=== PATIENT | male | born 1960 | race Caucasian/White ===

== ENCOUNTER 2025-07-14 11:50 | Emergency (ER) | payer BC ==
--- OUTSIDE RECORDS SUMMARY | 2025-07-14 11:53 | XMS REPORT | Clinical Summary ---
Author Name Unknown Organization [facility] Address [address] [place] [address] Care Team Providers Care Manufacturing Tech Name Role Phone Arie Lugo MD Primary Care Provider + Madhavi Ogden [facility]-GR[facility] SET UP OPERATOR THREAD Unavailable [phone] Allergies No known active allergies Medications * This document contains information received from the source organization and may not represent a complete record from that organization. atorvastatin (LIPITOR) 10 mg tablet Take 10 mg by mouth daily. 11/27/2019 Active omeprazole (PriLOSEC) 40 MG capsule Take 40 mg by mouth daily. 05/24/2019 Active tadalafil (CIALIS) 20 mg tablet Take 20 mg by mouth daily. 10/30/2019 Active zolpidem (AMBIEN) 10 mg tablet Take 10 mg by mouth as needed. 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 Cam Wilson came to see me in my clinic accompanied by his , Mili, who worked with me at [facility]. His main complaint is something stuck in his throat and needs to constantly clear his throat; it is worse at night. He also has difficulty swallowing pills which get stuck in the throat. These problems have been going on for 10 years along with severe GERD associated with obesity; his GERD and weight issues cleared after gastric bypass surgery in April 2018 when he lost weight from 270 lbs to 188lbs. He has no heartburn or regurgitation after surgery. He has seen an ENT surgeon who evaluated his throat. He tried benjamin for allergies with no difference. He denies postnasal drip. He has several EGDs - 2004, 2012 and 2018 - which revealed esophagitis, gastritis, hiatal hernia and a small cardia ulcer (in 2004). He had a polyp removed from the colon in 2018. He reports no gi bleeding and his bowels are regular. Exam: Unremarkable. 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 I suggested that we should get speech therapy evaluation to define it further. I encouraged him to try lemonade which has helped him in the past by making his saliva thin. Since he has had many endoscopies in the past, we will wait until the evaluation by speech therapy. He has a followup in 3 months. Surgical History Surgery Date Site/Laterality Comments COLONOSCOPY UPPER GASTROINTESTINAL ENDOSCOPY Medical History Medical History Date Comments Hyperlipidemia Swallowing problem Pneumonia 2017 Gastric reflux 2010 Gastric ulcer 2010 Benign prostatic hyperplasia 2010 Gastric cancer 04/2018 stroma Family History Medical History Relation Name Comments Prostate cancer Brother Chidi post taking hormones Cervical cancer Maternal Aunt Sylwia Plunkettarjun Relation Name Status Comments Brother Chidi Maternal Aunt Sylwia Plunkettarjun Social History Tobacco Use Types Packs/Day Years Used Date Smoking Tobacco: Former Cigarettes 2 10 Smokeless Tobacco: Former Quit: 09/17/1984 Alcohol Use Standard Drinks/Week Comments Yes 4 (1 standard drink = 0.6 oz pur e alcohol) per mos Sex and Gender Information Value Date Recorded Sex Assigned at Not on file 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 Gender Identity Not on file Sexual Orientation Not on file Obstetrics History Plan of Treatment Health Maintenance Due Date Last Done Comments Pneumococcal Vaccine: 50+ Years (1 of 1 - PCV) 010 COVID-19 Vaccine ( - 2023- season) 2025 Influenza Vaccine (#1) 2025 Insurance [facility] [place] PPO POS [facility] [place] PPO POS Care Teams Manufacturing Tech Relationship Specialty Start Date End Date Arie Lugo MD [facility] [place] [address] [email or web address] PCP - General Gastroenterology, Hepatology and Nutrition 11/22/19 Madhavi Ogden CCC-GRINDER SET UP OPERATOR THREAD [facility] [address] [email or web address] Speech Language Pathologist Speech Pathology 12/13/19
[2025-07-14] MEDS ORDERED: NA CHLORIDE 0.9% 1,000 ML ONE (12:00)
[2025-07-14] MEDS ORDERED: ONDANSETRON 4 MG/2 ML VIAL ONE (12:23)
[2025-07-14 12:32] LABS: Absolute Lymphocytes (CBC) 1.1 K/uL (0.7-4.9); Hematocrit 37.0 % (39.6-49.0); Hemoglobin 12.1 g/dL (13.6-17.9); MCH 28.4 pg (27.0-35.0); MCHC 32.6 g/dL (32.0-36.0); MCV 87.2 fL (80-100); MPV 8.5 fL (7.6-11.3); Nucleated RBC Absolute Count 0.0 (0-0); Nucleated Red Blood Cells % 0.0 % (0-0); RBC Red Blood Cell Count 4.25 M/uL (4.33-5.43); White Blood Count 4.90 thou/uL (4.3-10.9)
--- NOTE | 2025-07-14 12:36 | RAD REPORT ---
Procedure: Chest Single View HISTORY: Shortness of breath COMPARISON: 2021 FINDINGS: The lungs appear clear of acute infiltrate. No significant pleural effusion noted. The heart is normal size. IMPRESSION: No acute abnormality is displayed.
[2025-07-14 12:37] LABS: PT Prothrombin Time 11.8 SECONDS (10-13.0); Protime INR 1.05
[2025-07-14 12:49] LABS: Anion Gap 10.8 mEq/L (5.0-15.0); BUN Blood Urea Nitrogen 21.0 mg/dL (7-18); Glucose Level 123.0 mg/dL (74-106); Potassium 3.8 mEq/L (3.5-5.1); Troponin High Sensitivity 5.2 pg/mL (<58.9)
--- NOTE | 2025-07-14 13:00 | RAD REPORT ---
EXAM: CT brain without contrast HISTORY: Syncope COMPARISON: None TECHNIQUE: Multiple contiguous axial images were obtained and a CT of the brain without contrast.. Sagittal and coronal reconstruction performed. Automated exposure control, adjustment of the mA and/or kV according to patient size, and/or iterative reconstruction. Unless otherwise specified, incidental f indings do not require dedicated imaging follow-up FINDINGS: The majority of the left globe is filled with gas. No gas is visualized within the brain. An intracranial bleed is not seen Ventricles are normal caliber No extra-axial fluid collection noted No significant hypodensity within the brain No fluid within the visualized sinuses or mastoids noted. IMPRESSION: Approximately 85% of the left globe is filled with gas. The shape of the globe appears normal. The pa tient is status post recent retinal surgery. No acute intracranial abnormality noted. If the patient continues to have symptoms to suggest an acute intracranial abnormality then MRI of th e brain would be recommended.
--- NOTE | 2025-07-14 14:21 | EDPHYS ---
Physician Documentation [facility] Name: Cam Hoffman Age: 65 yrs Sex: Male : 1960 Arrival Date: 07/14/2025 Time: 11:50 Bed 5 Private MD: ED Physician Dalton Scruggs HPI: 07/14 13:31 This 65 yrs old Male presents to ER via EMS with complaints of Dizziness. dr5 13:31 The patient presents with dizziness, feeling faint. Onset: The symptoms/episode dr5 began/occurred acutely. Patient is a 65-year-old male with history of hypertension coming in with dizziness and syncopal episode at store today. Patient states that he was at the [employer] and walked outside to evaluate his vehicle when he began feeling lightheaded. Patient reports he went back inside sat down and became dizzy and had syncopal episode. Patient reports he also recently had retinal detachment surgery and saw his eye doctor this morning in which he placed gas in his eye. Patient denies any symptoms upon ER arrival and per reports he is already feeling better.. Historical: - Allergies: 11:55 No Known Allergies; bp - PMHx: 11:55 Hypertensive disorder; bp - PSHx: 11:55 RETINAL REATTACHMENT; bp - Immunization history:: Adult Immunizations unknown. - Infectious Disease History:: Denies. - Social history:: Smoking status: unknown. ROS: 13:31 Constitutional: as per hpi dr5 Exam: 13:31 Constitutional: This is a well developed, well nourished patient who is awake, alert, dr5 and in no acute distress. Head/Face: Normocephalic, atraumatic. Eyes: Pupils equal round and reactive to light, extra-ocular motions intact. Lids and lashes normal. Conjunctiva and sclera are non-icteric and not injected. Cornea within normal limits. Periorbital areas with no swelling, redness, or edema. Neck: Trachea midline, no thyromegaly or masses palpated, and no cervical lymphadenopathy. Supple, full range of motion without nuchal rigidity, or vertebral point tenderness. No Meningismus. Chest/axilla: Normal chest wall appearance and motion. Nontender with no deformity. No lesions are appreciated. Cardiovascular: Regular rate and rhythm with a normal S1 and S2. Normal PMI, no JVD. No pulse deficits. Respiratory: Lungs have equal breath sounds bilaterally, clear to auscultation. No rales, rhonchi or wheezes noted. No increased work of breathing, no retractions or nasal flaring. Abdomen/GI: Soft, non-tender, non-distended Back: No spinal tenderness. No costovertebral tenderness. Full range of motion. Skin: Warm, dry with normal turgor. Normal color with no rashes, no lesions, and no evidence of cellulitis. MS/ Extremity: Pulses equal, no cyanosis. Neurovascular intact. Full, normal range of motion. Neuro: Awake and alert, GCS 15, oriented to person, place, time, and situation. Cranial nerves II-XII grossly intact. Motor strength 5/5 in all extremities. Sensory grossly intact. Cerebellar exam normal. Normal gait. Vital Signs: 11:53 BP 114 / 67; Pulse 75; Resp 18; Temp 97.9; Pulse Ox 98% ; bp 13:45 BP 139 / 72; Pulse 82; cm10 14:00 BP 144 / 79; Pulse 81; Resp 16; Pulse Ox 97% ; cm10 14:43 BP 150 / 92; Pulse 92; Resp 16; Pulse Ox 99% ; cm10 NIH Stroke Scale Scores: 13:31 NIHSS Score: 0 dr5 MDM: 11:58 Medical Screening Exam initiated dr5 17:09 Differential diagnosis: CVA, generalized weakness, near-syncope, syncope, TIA, vertigo. dr5 Data reviewed: vital signs, nurses notes, lab test result(s), cardiac enzymes, troponin i, CBC, white blood cell count, hemoglobin, hematocrit, platelets, electrolytes, sodium, potassium, chloride, serum bicarbonate, BUN, creatinine, serum glucose, EKG, radiologic studies, CT scan. Consideration of Admission/Observation Escalation of care including admission/observation considered. Escalation considered patient found to have acute kidney injury, intracranial hemorrhage. I considered the following discharge prescriptions or medication management in the emergency department I discussed and recommended Over The Counter medications, Medications were administered in the Emergency Department. See MAR. Historians other than the Patient: Spouse/Significant Other: Spouse. Care significantly affected by the following chronic conditions: Hypertension. Care significantly affected by the following Social Determinants of Health: Poor access to healthcare and/or lack of insurance, Poor access to transportation, Problems related to employment. Counseling: I had a detailed discussion with the patient and/or guardian regarding the historical points, exam findings, and any diagnostic results supporting the discharge/admit diagnosis, the presence of at least one elevated blood pressure reading (>120/80) during this emergency department visit, lab results, radiology results, the need for outpatient follow up, for definitive care, a family practitioner, to return to the emergency department if symptoms worsen or persist or if there are any questions or concerns that arise at home. Medication response: Normal saline. Response to treatment: the patient's symptoms have resolved after treatment, the patient's condition has returned to base line, the patient is now symptom free. Special discussion: Based on the patient's history, exam, and Dx evaluation, there is no indication for emergent intervention or inpatient Tx. It is understood by the patient/guardian that if the Sx's persist or worsen they need to return immediately for re-evaluation. Based on the patient's Hx, exam, and Dx evaluation, there is no indication for emergent surgery or inpatient Tx. It is understood by the patient/guardian that if the Sx's persist or worsen they need to return immediately for re-evaluation. Based on the patient's history, exam and DX evaluation, there is no indication for emergent intervention or inpatient [place]. It is understood by the patient/guardian that if the SXs persist or worsen they need to return immediately for re-evaluation. I discussed with the patient/guardian in detail that at this point there is no indication for admission to the hospital. It is understood, however, that if the symptoms persist or worsen the patient needs to return immediately for re-evaluation. Based on the history and exam findings, there is no indication for further emergent testing or inpatient evaluation. I discussed with the patient/guardian the need to see the primary care provider for further evaluation of the symptoms. ED course: Patient's labs were unremarkable as well as CT scan. Patient states that he feels much better and dizziness is resolved. Recommend patient follow-up primary care doctor as well as ophthalmology as needed. All questions answered. Strict ER precautions given. Printed all labs and diagnostics and given to to take with him.. 07/14 11:53 Order name: Basic Metabolic Panel; Complete Time: 12:51 bp 07/14 11:53 Order name: CBC with Diff; Complete Time: 12:36 bp 07/14 11:53 Order name: PT-INR; Complete Time: 12:45 bp 07/14 11:53 Order name: Troponin HS; Complete Time: 12:51 bp 07/14 11:53 Order name: XRAY Chest (1 view); Complete Time: 12:45 bp 07/14 11:53 Order name: CT Head Brain wo Cont; Complete Time: 13:03 bp 07/14 11:53 Order name: EKG; Complete Time: 11:54 bp 07/14 11:53 Order name: Cardiac monitoring; Complete Time: 13:15 bp 07/14 11:53 Order name: EKG - Nurse/Tech; Complete Time: 13:15 bp 07/14 11:53 Order name: IV Saline Lock; Complete Time: 13:15 bp 07/14 11:53 Order name: Labs collected and sent; Complete Time: 13:15 bp 07/14 11:53 Order name: O2 Per Protocol; Complete Time: 13:15 bp 07/14 11:53 Order name: O2 Sat Monitoring; Complete Time: 13:15 bp EC:58 Rate is 56 beats/min. Rhythm is regular. QRS [place] is Normal. MO interval is normal at dr5 188 msec. QRS interval is normal at 120 msec. QT interval is normal at 458 msec. Clinical impression: Normal ECG and No evidence of ischemia. Administered Medications: 13:15 Drug: Ondansetron IVP 4 mg IVP once; over 2 minutes Route: IVP; Site: left antecubital; cm10 14:10 Follow up: Response: No adverse reaction cm10 13:16 Drug: NS 0.9% IV 1000 ml IV at 1000 ml once; to be given as a bolus over 60 minutes cm10 Route: IV; Rate: 1000 ml; Site: left antecubital; 14:15 Follow up: Response: No adverse reaction; IV Status: Completed infusion; IV Intake: cm10 1000ml Disposition: 16:56 Co-signature as Attending Physician, Dalton Scruggs MD I reviewed the patient's care rn provided by the Advanced Practice Provider and agree with the diagnosis and treatment plan. Disposition Summary: 07/14/25 14:21 Discharge Ordered Notes: Location: Home dr5 Condition: Stable dr5 Diagnosis - Syncope Near dr5 Followup: dr5 - With: Emergency Department - When: As needed - Reason: Worsening of condition Followup: dr5 - With: Private Physician - When: 1 - 2 days - Reason: Recheck today's complaints, Continuance of care, Re-evaluation by your physician Discharge Instructions: - Discharge Summary Sheet dr5 - Dehydration, Adult dr5 - Syncope dr5 Forms: - Medication Reconciliation Form dr5 - Patient Portal Instructions dr5 - Leadership Thank You Letter dr5 NIH Stroke Scale - NIH Stroke Score Date: 07/14/2025 Time: 13:31 Total Score = 0 10. Dysarthria (speech clarity - read or repeat words) - 0(Normal) 11. Extinction and Inattention (visual/tactile/auditory/spatial/personal) - 0(No abnormality) 1a. Level of Consciousness (LOC) - 0(Alert) 1b. Level of Consciousness (LOC) (Month \T\ Age) - 0(Both) 1c. LOC Commands (Open \T\ Closes Eyes/Adult Family Home Program Manager) - 0(Both) 2. Best Gaze (Lateral Gaze Paresis) - 0(Normal) 3. Visual Field Loss - 0(No visual loss) 4. Facial Palsy - 0(Normal) 5a. Left Arm: Motor (10-second hold) - 0(No drift) 5b. Right Arm: Motor (10-second hold) - 0(No drift) 6a. Left Leg: Motor (5-second hold - always test supine) - 0(No drift) 6b. Right Leg: Motor (5-second hold - always test supine) - 0(No drift) 7. Limb Ataxia (finger/nose \T\ heel/chahal - test with eyes open) - 0(Absent) 8. Sensory Loss (pinprick arms/legs/face) - 0(Normal) 9. Best Language: Aphasia (description/naming/reading) - 0(No aphasia) Initials: dr5 Signatures: Dispatcher [employer] EDDalton Wilkerson MD MD rn Peltier, Brian RN Vivian Crowe RN RN cm10 Filipe Andrade, GEORGINA-C STRATEGIES ANALYST-Cdr5
--- NOTE | 2025-07-14 14:21 | ER ---
Nurse's Notes [facility] Name: Cam Hoffman Age: 65 yrs Sex: Male : 1960 Arrival Date: 07/14/2025 Time: 11:50 Bed 5 Private MD: Diagnosis: Syncope Near Presentation: 07/14 11:53 Chief complaint: EMS states: SYNCOPE AND HYPOTENSION AT STORE. Coronavirus screen: At bp this time, the client does not indicate any symptoms associated with coronavirus-19. Ebola Screen: No symptoms or risks identified at this time. Initial Sepsis Screen: Does the patient meet any 2 criteria? No. Patient's initial sepsis screen is negative. Does the patient have a suspected source of infection? No. Patient's initial sepsis screen is negative. Risk Assessment: Do you want to hurt yourself or someone else? Patient reports no desire to harm self or others. Onset of symptoms was July 14, 2025 at 11:30. Care prior to arrival: IV initiated. 20 GA, in the left forearm, Glucose check: 110. 11:53 Method Of Arrival: EMS: [facility] bp 11:53 Acuity: CARLOS 3 bp Triage Assessment: 11:55 General: Appears in no apparent distress. Behavior is cooperative, appropriate for age, bp anxious. Pain: Denies pain. EENT: No deficits noted. Neuro: Level of Consciousness is awake, alert, obeys commands, Oriented to Appropriate for age Reports dizziness, a syncopal episode. Cardiovascular: Rhythm is sinus rhythm. Respiratory: No deficits noted. GI: No signs and/or symptoms were reported involving the gastrointestinal system. : No signs and/or symptoms were reported regarding the genitourinary system. Derm: No deficits noted. Musculoskeletal: No deficits noted. Historical: - Allergies: 11:55 No Known Allergies; bp - PMHx: 11:55 Hypertensive disorder; bp - PSHx: 11:55 RETINAL REATTACHMENT; bp - Immunization history:: Adult Immunizations unknown. - Infectious Disease History:: Denies. - Social history:: Smoking status: unknown. Screenin:57 [facility] ED Fall Risk Assessment (Adult) History of falling in the last 3 months, bp including since admission No falls in past 3 months (0 pts) Confusion or Disorientation No (0 pts) Intoxicated or Sedated No (0 pts) Impaired Gait No (0 pts) Mobility Assist Device Used No (0 pt) Altered Elimination No (0 pt) Score/Fall Risk Level 0 - 2 = Low Risk Oriented to surroundings. Abuse screen: Denies threats or abuse. Denies injuries from another. Nutritional screening: No deficits noted. Tuberculosis screening: No symptoms or risk factors identified. Assessment: 11:57 General: SEE TRIAGE NOTE. bp 14:44 Reassessment: Patient appears in no apparent distress at this time. Patient and/or cm10 family updated on plan of care and expected duration. Pain level reassessed. Patient is alert, oriented x 3, equal unlabored respirations, skin warm/dry/pink. Patient states feeling better. Patient states symptoms have improved. Vital Signs: 11:53 BP 114 / 67; Pulse 75; Resp 18; Temp 97.9; Pulse Ox 98% ; bp 13:45 BP 139 / 72; Pulse 82; cm10 14:00 BP 144 / 79; Pulse 81; Resp 16; Pulse Ox 97% ; cm10 14:43 BP 150 / 92; Pulse 92; Resp 16; Pulse Ox 99% ; cm10 NIH Stroke Scale Scores: 13:31 NIHSS Score: 0 dr5 ED Course: 11:52 Patient arrived in ED. bp 11:55 Triage completed. bp 11:55 Arm band placed on. bp 11:57 Patient has correct armband on for positive identification. bp 11:57 Maintain EMS IV. Dressing intact. Good blood return noted. Site clean \T\ dry. Gauge \T\ bp site: 20 LFA. 11:58 Filipe Andrade FNP-C is [facility]. dr5 11:58 Dalton Scruggs MD is Attending Physician. dr5 12:12 John Douglass, RN is Primary Nurse. bp 12:25 XRAY Chest (1 view) In Process Unspecified. EDMS 12:27 CT Head Brain wo Cont In Process Unspecified. EDMS 14:44 Provided Education on: Follow-up instructions. cm10 14:44 No provider procedures requiring assistance completed. IV discontinued, intact, cm10 bleeding controlled, No redness/swelling at site. Pressure dressing applied. Administered Medications: 13:15 Drug: Ondansetron IVP 4 mg IVP once; over 2 minutes Route: IVP; Site: left antecubital; cm10 14:10 Follow up: Response: No adverse reaction cm10 13:16 Drug: NS 0.9% IV 1000 ml IV at 1000 ml once; to be given as a bolus over 60 minutes cm10 Route: IV; Rate: 1000 ml; Site: left antecubital; 14:15 Follow up: Response: No adverse reaction; IV Status: Completed infusion; IV Intake: cm10 1000ml Medication: 11:57 VIS not applicable for this client. bp Intake: 14:15 IV: 1000ml; Total: 1000ml. cm10 Outcome: 14:21 Discharge ordered by . rehana 14:44 Discharged to home ambulatory, with significant other, cm10 14:44 Condition: good 14:44 Discharge instructions given to patient, Instructed on discharge instructions, follow up and referral plans. Demonstrated understanding of instructions, follow-up care, 14:45 Patient left the ED. cm10 NIH Stroke Scale - NIH Stroke Score Date: 07/14/2025 Time: 13:31 Total Score = 0 10. Dysarthria (speech clarity - read or repeat words) - 0(Normal) 11. Extinction and Inattention (visual/tactile/auditory/spatial/personal) - 0(No abnormality) 1a. Level of Consciousness (LOC) - 0(Alert) 1b. Level of Consciousness (LOC) (Month \T\ Age) - 0(Both) 1c. LOC Commands (Open \T\ Closes Eyes/[employer] Electrical Systems Designer) - 0(Both) 2. Best Gaze (Lateral Gaze Paresis) - 0(Normal) 3. Visual Field Loss - 0(No visual loss) 4. Facial Palsy - 0(Normal) 5a. Left Arm: Motor (10-second hold) - 0(No drift) 5b. Right Arm: Motor (10-second hold) - 0(No drift) 6a. Left Leg: Motor (5-second hold - always test supine) - 0(No drift) 6b. Right Leg: Motor (5-second hold - always test supine) - 0(No drift) 7. Limb Ataxia (finger/nose \T\ heel/chahal - test with eyes open) - 0(Absent) 8. Sensory Loss (pinprick arms/legs/face) - 0(Normal) 9. Best Language: Aphasia (description/naming/reading) - 0(No aphasia) Initials: dr5 Signatures: Dispatcher [employer] EDJohn Cotter RN RN bp Martinez, Clarissa, RN RN cm10 Filipe Andrade, REAL ESTATE EXECUTIVE ASSISTANT-C REAL ESTATE EXECUTIVE ASSISTANT-Cdr5
[2025-07-14 14:53] VITALS: TEMP 97.9
[2025-07-14 14:57] VITALS: BP 150/92; O2SAT 99
== END 2025-07-14 14:45 | disposition home or self-care (01) ==
LOC: ER 11:50
DX: R55 Syncope and collapse (principal); I10 Essential (primary) hypertension
CPT/HCPCS: 96361; 93005; 85025; 80048; 36415; 85610; 84484; 70450; 71045; 96374; 99284; J2405; J7030